=== PATIENT | male | born 1985 | race African-American/Black ===

== ENCOUNTER 2017-06-15 18:40 | Emergency (ER) | payer OTHER ==
[~2017-06-15] VITALS: Ht 167.6 cm; Wt 68.9 kg
[2017-06-15 20:30] VITALS: BP 130/80
--- NOTE | 2017-06-15 21:20 | PHYS DOC ---
Past Medical History Past Medical History: No Pertinent History Past Surgical History: No Surgical History Alcohol Use: None Drug Use: None Adult General Chief Complaint Chief Complaint: HEADACHE HPI HPI Patient is a 31 year old with history of seasonal allergies to congestion, rhinorrhea, cough, postnasal drip and bitemporal headache. He began 3 days ago and is rated [id number] is described as pressure-like. Patient's headache has not improved with ibuprofen. Denies fever, chills, neck stiffness, nausea, vomiting, rash or petechiae. No extremity weakness or loss of sensation. No sinus pain or tenderness. No familial history of subarachnoid hemorrhage. This is not the worst headache of the patient's life. Review of Systems Review of Systems Review symptoms as per history of present illness. All other review symptoms are negative. Allergies Allergies Allergies Coded Allergies Type Severity Reaction Last Updated Verified No Known Drug Allergies 06/15/17 No Physical Exam Physical Exam Constitutional: Well developed, well nourished, no acute distress, non-toxic appearance. [] HENT: Normocephalic, atraumatic, bilateral external ears normal, oropharynx moist, no oral exudates, nose gesturing, clear rhinorrhea no facial tenderness. [] Eyes: PERRLA, EOMI, conjunctiva normal, no discharge. [] Neck: Normal range of motion, no tenderness, supple, no stridor. [] Cardiovascular:Heart rate regular rhythm, no murmur [] Lungs & Thorax: Bilateral breath sounds clear to auscultation [] Abdomen: Bowel sounds normal, soft, no tenderness. [] Skin: Warm, dry, no erythema, no rash. [] Back: No tenderness. [] Extremities: No tenderness, no cyanosis, no clubbing, ROM intact, no edema. [] Neurologic: Alert and oriented X 3, normal motor function, normal sensory function, no focal deficits noted. [] Psychologic: Affect normal, judgement normal, mood normal. [] Current Patient Data Vital Signs Vital Signs Date Time Temp Pulse Resp B/P (MAP) Pulse Ox O2 Delivery O2 Flow Rate FiO2 06/15/17 19:00 99.1 60 22 133/82 (99) 98 Room Air 99.1 EKG EKG [] Radiology/Procedures Radiology/Procedures [] Course & Med Decision Making Course & Med Decision Making Pertinent Labs and Imaging studies reviewed. (See chart for details) [Reproducible headache likely multifactorial relating to poor sleep schedule an seasonal allergies. Other etiologies considered considered but felt less likely. Will treat supportively with PCP follow-up. Return precautions reviewed. ] Bharath Disclaimer Bharath Disclaimer This electronic medical record was generated, in whole or in part, using a voice recognition dictation system. Departure Departure Impression: Primary Impression: Headache Additional Impression: Seasonal allergies Disposition: HOME, SELF-CARE Condition: GOOD Patient Instructions: General Headache Without Cause, Allergic Rhinitis Additional Instructions: Please go home and rest. Continue ibuprofen for headache and take Compazine and tramadol as needed for additional relief. Take Joan as prescribed for seasonal allergies. Follow-up with your PCP in 3-4 days for reevaluation of symptoms persist. Return to the ED if new or worsening symptoms. Problem Qualifiers HALEY MOONEY DO Jun 15, 2017 21:19
== END 2017-06-15 21:21 | disposition home or self-care (01) ==
LOC: ER 18:40
DX: J30.2 Other seasonal allergic rhinitis (principal); R51 Headache
CPT/HCPCS: 99283